=== PATIENT | male | born 1965 | race Hispanic/Latino ===

== ENCOUNTER 2017-05-06 18:09 | Inpatient (IN) | payer MEDICAID ==
[2017-05-06 18:17] VITALS: O2SAT 97
--- NOTE | 2017-05-06 18:24 | C.PDOC ---
History Of Present Illness Pt was transferred here for psychiatric admission. Pt was medically cleared at the referring facility. Time Seen by Provider: 05/06/17 18:15 Chief Complaint (Nursing): Psychiatric Evaluation History Per: Patient, Other (Transfer papers) Onset/Duration Of Symptoms: Days Current Symptoms Are (Timing): Still Present Suicide/Self Injury Attempted (Context): None Modifying Factor(s): Alcohol Severity: Moderate Associated Symptoms: Depression Additional History Per: Prior Records Past Medical History Reviewed: Historical Data, Nursing Documentation, Vital Signs Vital Signs: Last Vital Signs Temp 98 F 05/06/17 18:14 Pulse 78 05/06/17 18:14 Resp 16 05/06/17 18:14 BP 167/107 H 05/06/17 18:14 Pulse Ox 97 05/06/17 18:14 - Medical History PMH: Anxiety, Depression, HTN Family History: States: Unknown Family Hx - Social History Hx Tobacco Use: Yes Hx Alcohol Use: Yes (recently more) Hx Substance Use: No - Immunization History Hx Tetanus Toxoid Vaccination: No Hx Influenza Vaccination: No Review Of Systems Cardiovascular: Negative for: Chest Pain Respiratory: Negative for: Shortness of Breath Gastrointestinal: Negative for: Abdominal Pain Musculoskeletal: Negative for: Neck Pain Neurological: Negative for: Weakness, Seizures Psych: Negative for: Suicidal ideation Physical Exam - Physical Exam Appears: Non-toxic, No Acute Distress Skin: Normal Color, Warm, Dry, No Rash Head: Atraumatic, Normacephalic Eye(s): bilateral: PERRL, EOMI Neck: Normal ROM, Supple Cardiovascular: Rhythm Regular Respiratory: Normal Breath Sounds, No Accessory Muscle Use Gastrointestinal/Abdominal: Soft, No Tenderness Extremity: Normal ROM Neurological/Psych: Oriented x3, Normal Motor, Normal Sensation ED Course And Treatment O2 Sat by Pulse Oximetry: 97 Pulse Ox Interpretation: Normal Disposition - Disposition Disposition: HOSPITALIZED Disposition Time: 18:23 Condition: STABLE - Clinical Impression Clinical Impression: Depressive disorder Decision To Admit - Pt Status Changed To: Hospital Disposition Of: Inpatient - Admit Certification Admit to Inpatient:: After my assessment, the patient will require hospitalization for at least two midnights. This is because of the severity of symptoms shown, intensity of services needed, and/or the medical risk in this patient being treated as an outpatient. - InPatient: Physician Admission Certification: I certify that this patient requires 2 or more midnights of care for the following reason:: Psych. - . Bed Request Type: Psychiatry Admitting Physician: Sherry Joyce Patient Diagnosis: Depressive disorder
[2017-05-07 07:56] VITALS: RESP 20
--- NOTE | 2017-05-07 12:16 | PCM.PSYCH ---
Initial Psychiatric Evaluation - Initial Psychiatric Evaluation Type of Admission: Voluntary Legal Status: Capacity Chief Complaint (in patient's own words): "Very stressed" History of Present Illness and Precipitating Events: The patient is seen and medical records reviewed including [facility] chart, case discussed. This is a 51-year-old male, single with no child, has a girlfriend, currently unemployed and lives alone. He has a brother who is supportive but he can't live with him due to problems with the police. The patient reports once of depression and anxiety and he was never treated before. He denies suicidal ideation or plan. However, he was brought to ER due to his brother calling [facility] to do a wellness check on the patient. Reportedly, the patient told his brother that he would blow up the gas at home. However, the patient adamantly denies this and he states that he smelled some gas but he did not cause it and he had no intention to blow up anything or hurt himself. He claims that his brother was worried about him and wanted him to be checked. 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 He is future oriented. He drinks 2-3 beers daily but not every day he states. He denies any tolerance or withdrawal symptoms. He denies any blackouts. He smokes 1 package per day cigarettes. He denies drug use. Thread Singer spoke to his brother , Nicolas, , and he confirmed that the pt had not been threatening suicide or very depressed. He said that the pt was "very stressed that day." He also confirmed that the pt is not a heavy drinker. He is supportive he said. Past psych history: Denies Family psych history: Denies Medical history: High blood pressure but he has not taken any medications since last year. Current Medications: Active Medications Generic Name Dose Route Start Last Admin Trade Name Toyq PRN Reason Stop Dose Admin Clonidine HCl 0.1 mg 05/06/17 19:44 05/07/17 08:23 Catapres PO 0.1 mg Q6H PRN Administration Systolic Blood Pressure Escitalopram Oxalate 5 mg 05/07/17 12:00 Lexapro PO DAILY JIGAR Hydroxyzine HCl 50 mg 05/06/17 19:44 05/06/17 21:15 Atarax PO 50 mg Q6H PRN Administration Anxiety Trazodone HCl 50 mg 05/07/17 11:48 Desyrel PO HS PRN Insomnia Past Psychiatric History - Past Psychiatric History Previous Treatment History: None Pertinent Medical Hx (Current Medical&Sleep Prob, Allergies): Allergies Allergy/AdvReac Type Severity Reaction Status Date / Time No Known Allergies Allergy Verified 05/06/17 18:21 No Known Home Med 05/06/17 Review of Systems - Psychiatric Psychiatric: Abnormal Sleep Pattern, Anhedonia, Anxiety, Change in Appetite, Depression, Difficulty Concentrating, Irritability. absent: Hallucinations, Homicidal Ideation, Suicidal Ideation Mental Status Examination - Personal Presentation Personal Presentation: Looks older than stated age - Affect Affect: Constricted - Motor Activity Motor Activity: Calm - Reliability in Providing Information Reliability in Providing Information: Good - Speech Speech: Organized - Mood Mood: Depressed, Anxious - Formal Thought Process Formal Thought Process: No Impairment - Cognitive Functions Orientation: Person, Place, Situation, Time Sensorium: Alert Attention/Concentration: Attentive Estimate of Intelligence: Average Judgement: Intact, as evidence by: Insight regarding need for hospitalization Memory: Recent intact, as evidence by: Ability to recall events of the day, Remote intact, as evidenced by: Abilit to recall sig. life events - Risk Risk: Diminished functioning - Strength & Assets Inventory Strength & Assets Inventory: Employment history, Cooperative - Limitations Limitations: Living alone DSM 5 DX - DSM 5 DSM 5 Diagnosis: Depressive d/o - unspecified Alcohol use - moderate Tobacco use severe - Recommended/Plan of Treatment Treatment Recommendations and Plan of Treatment: Depression: - Lexapro - Support and psychoeducation - Attend groups and activities - CBt Alcohol: - Mi for abstinence - No need for detox as he is not withdrawing Tobacco:: - Patch - ND for abstinence 34 min
[2017-05-08 07:44] VITALS: BP 148/96; PULSE 61; TEMP 97.5
--- NOTE | 2017-05-08 09:22 | PCM.PYCHDC ---
Mental Status Examination - Mental Status Examination Orientation: Person, Place, Situation, Time Memory: Intact Mood: Depressed, Anxious Affect: Constricted Speech: Appropriate Attention: WNL Concentration: WNL Association: WNL Fund of Knowledge: WNL Formal Thought Process: No Impairment Suicidal Ideation: No Current Homicidal Ideation?: No Discharge Summary - Discharge Note Reason for Hospitalization: Brother called [facility] to get him to ER due to suicide threat. Consultations:: List each consultation separately and include: 1. Reason for request. 2. Findings. 3. Follow-up Summary of Hospital Course include:: 1. Description of specific treatment plan utilized for patients during their course of treatmen. 2. Summarize the time- course for resolution of acute symptoms and/or regressed behaviors. 3. Describe issues identified and worked on during hospitalization. 4. Describe medication utilized. 5. Describe medical problems identified and treated. 6. Reassessment of suicide risk Summary of Hospital Course: On admission: The patient is seen and medical records reviewed including [facility] chart, case discussed. This is a 51-year-old male, single with no child, has a girlfriend, currently unemployed and lives alone. He has a brother who is supportive but he can't live with him due to problems with the police. The patient reports once of depression and anxiety and he was never treated before. He denies suicidal ideation or plan. However, he was brought to ER due to his brother calling [facility] to do a wellness check on the patient. Reportedly, the patient told his brother that he would blow up the gas at home. However, the patient adamantly denies this and he states that he smelled some gas but he did not cause it and he had no intention to blow up anything or hurt himself. He claims that his brother was worried about him and wanted him to be checked. 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 He is future oriented. He drinks 2-3 beers daily but not every day he states. He denies any tolerance or withdrawal symptoms. He denies any blackouts. He smokes 1 package per day cigarettes. He denies drug use. Human Factors Advisor Lead spoke to his brother , Nicolas, , and he confirmed that the pt had not been threatening suicide or very depressed. He said that the pt was "very stressed that day." He also confirmed that the pt is not a heavy drinker. He is supportive he said. Past psych history: Denies Family psych history: Denies Medical history: High blood pressure but he has not taken any medications since last year. Hospital course: The pt was admitted and started on treatment with psychotherapy, support, psychoeducation and medications. The pt attended few activities, as well as milieu therapy. All the risks and benefits of medications are discussed and the patient understood and agreed. After care discussed with the patient. He agreed for counseling at [facility] The patient improved and dc'ed due to his request rather quickly. Risks of leaving early discussed but he insisted as he had to find work and money, he said. Human Factors Advisor Lead spoke with his brother too, and he confirmed that he was stressed but not suicidal and "not alcoholic." - Final Diagnosis (DSM 5) Condition upon Discharge: STABLE DSM 5: Depressive d/o - unspecified Alcohol use - moderate Tobacco use severe Disposition: HOME/ ROUTINE Follow-up Treatment Plan: Continue below medications after discharge. Follow after care plan as discussed above at [facility] Use relapse prevention skills. Return to ER or call 911 if suicidal, homicidal or symptoms relapse. Stay away from stress, alcohol and drugs. Use relaxation techniques. See primary doctor once a year and get labs. Prescriptions/Medication Reconciliation: Escitalopram [Lexapro] 10 mg PO DAILY #30 tab traZODone [Desyrel] 100 mg PO HS PRN #30 tab PRN Reason: Insomnia - Smoking Cessation Smoking Cessation Medication prescribed: No - Antipsychotic Medications Pt discharged on 2 or more routine antipsychotic medications: No
== END 2017-05-08 10:05 | disposition home or self-care (01) | DRG 426 ==
LOC: C.ER 18:09 → C.5E 18:24
PROVIDERS: ADMIT Psychiatry & Neurology Psychiatry; ATTEND Psychiatry & Neurology Psychiatry
PROC: GZ3ZZZZ Medication Management (ICD-10-PCS; principal; 2017-05-06)
PROC: GZHZZZZ Group Psychotherapy (ICD-10-PCS; 2017-05-06)
PROC: GZ56ZZZ Individual Psychotherapy, Supportive (ICD-10-PCS; 2017-05-06)
DX: F32.9 Major depressive disorder, single episode, unspecified (principal); F41.9 Anxiety disorder, unspecified; I10 Essential (primary) hypertension; F10.10 Alcohol abuse, uncomplicated; F17.210 Nicotine dependence, cigarettes, uncomplicated